=== PATIENT | male | born 1955 | race Hispanic/Latino ===

== ENCOUNTER → 2024-04-20 | Outpatient (CLI) | payer OTHER, MEDICARE ==
[~2024-04-20] MED LIST: IOHEXOL 350 MG/ML 100ML INFUS..BTL IV ONE; metoPROLOL tartRATE 1 MG/ML 5ML VIAL IV ONE
--- NOTE | 2024-04-20 14:14 | HMCIMG ---
CT CARDIAC ANGIO W/CONT. CCTA HISTORY: Abnormal result of cardiovascular function study. COMPARISON: None TECHNIQUE: Multiple sequential axial images of the chest were obtained along with the CT angiogram of the chest study. Patient was given 100 cc of Omnipaque through intravenous route. FINDINGS: There is no evidence of pulmonary nodule or parenchymal disease. No pleural effusion or pericardial effusion is seen. There is no evidence of pneumothorax. There are normal size mediastinal and hilar lymph nodes. The heart is not enlarged. Degenerative changes of the thoracolumbar spine are present. A small hiatal hernia is seen. IMPRESSION: 1. No evidence of pulmonary nodule or effusion is seen. Please see CT angiogram report of coronary arteries.
--- NOTE | 2024-04-22 07:20 | CARDIOLOGY ---
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 A dedicated, limited window, coronary imaging protocol was used, with single breath-hold, retrospective ECG gating, and automated arrhythmia rejection. 100 cc of low osmolar contrast agent: Omnipaque 350 was delivered via a 18-gauge IV catheter in the right antecubital fossa, using a power injector and followed by 60 cc of normal saline bolus as a chaser. Collimated images were reformatted at 0.5 mm intervals, and sent to an offline independent workstation for interpretation, using 3D anatomic reconstructions: Curved multiplanar reconstructions, maximum intensity projections, and multiplanar imaging. No metoprolol was administered prior to scanning due to low baseline heart rate. 0.4 mg SL nitroglycerin was given. CORONARY ARTERY DESCRIPTIONS: The coronary arteries arise in normal position. Left main coronary artery: Normal caliber vessel that trifurcates into the LAD, ramus and LCx. No stenosis. Left anterior descending coronary artery: Normal caliber vessel and gives rise to diagonal and septal branches. Heavily calcified ostial/proximal LAD may represent subtotal occlusion or [employer] with distal collateral filling. Ramus intermedius artery: Small to medium caliber. There is mixed calcified and noncalcified plaque in the proximal ramus with 40-50% stenosis. Left circumflex coronary artery: Normal caliber, nondominant and gives rise to a large OM branch. There is mixed calcified and noncalcified plaque in the proximal LCx with 40-50% stenosis. Right coronary artery: Large, dominant vessel giving rise to the PL and PDA branches. There is mixed calcified and noncalcified plaque in the proximal RCA with >70% stenosis. There is mixed calcified and noncalcified plaque in the distal RCA with 40-50% stenosis. CAD-RADs: 4B, severe multivessel obstructive CAD. Recommend left heart catheterization. Arcelia Lara MD Cardiovascular Disease [facility] ARCELIA LARA MD Apr 22, 2024 07:20
== END | disposition home or self-care (01) ==
LOC: RAH 11:43
PROVIDERS: ATTEND Student in an Organized Health Care Education/Training Program
DX: I25.10 Atherosclerotic heart disease of native coronary artery without angina pectoris (principal); K44.9 Diaphragmatic hernia without obstruction or gangrene; M47.815 Spondylosis without myelopathy or radiculopathy, thoracolumbar region; R94.39 Abnormal result of other cardiovascular function study
CPT/HCPCS: 75574; J3490 ×2; Q9967 ×2

== ENCOUNTER → 2024-05-29 | Outpatient (CLI) | payer OTHER, MEDICARE ==
[~2024-05-29] VITALS: Ht 165.1 cm; Wt 71.2 kg
[~2024-05-29] MED LIST changes: +ASPI-1443 PO; +ATOR40TA71 PO; +DAPA1TAB3 PO; +ICOS1CAP PO; +INSU200I4 SQ; -IOHEXOL 350 MG/ML 100ML INFUS..BTL IV ONE; +LEVO25TA54 PO; +LISI2.5T13 PO; -metoPROLOL tartRATE 1 MG/ML 5ML VIAL IV ONE
[2024-05-29 10:27] LABS: BASOPHILS # (AUTO) 0.03 K/uL (0.00-0.20); BASOPHILS % (AUTO) 0.4 % (0.0-5.0); EOSINOPHILS # (AUTO) 0.09 K/uL (0.00-0.70); EOSINOPHILS % (AUTO) 1.1 % (0.0-8.0); HEMATOCRIT 41.7 % (42-54); IMMATURE GRANULOCYTE ABSOLUTE 0.03 K/uL (0-1); LYMPHOCYTES % (AUTO) 25.5 % (21.0-51.0); MEAN CORPUSCULAR HEMOGLOBIN 30.2 pg (27.0-33.0); MEAN CORPUSCULAR HGB CONC 32.9 g/dL (32.0-36.0); MEAN CORPUSCULAR VOLUME 92.1 fL (79-99); MONOCYTES # (AUTO) 0.4 K/uL (0.1-1.0); NEUTROPHILS # (AUTO) 5.3 K/uL (1.8-7.7); NEUTROPHILS % (AUTO) 67.6 % (40.0-77.0); PLATELET COUNT (AUTO) 138 K/uL (130-400); RED BLOOD CELL COUNT(AUTO) 4.53 MIL/uL (4.50-6.20); RED CELL DISTRIBUTION WIDTH 13.7 % (11.0-15.5); WHITE BLOOD COUNT (AUTO) 7.9 K/uL (4.8-10.8)
[2024-05-29 10:33] VITALS: BP 161/73; PULSE 80; RESP 16; TEMP 97.6
[2024-05-29 10:36] LABS: CREATININE 1.4 mg/dL (0.5-1.3); POTASSIUM 5.3 mmol/L (3.5-5.1)
[2024-05-29 10:37] LABS: INR 1.04 (0.85-1.15); PROTHROMBIN TIME 11.2 SEC (9.6-11.6)
[2024-05-29 10:38] LABS: PARTIAL THROMBOPLASTIN TIME 27.9 SEC (26.3-35.5)
--- NOTE | 2024-05-29 10:50 | EKG ---
[facility] Test Date: 2024-05-29 Test Time: 11:12:47 Pat Name: GABY STEVENS Department: [facility] Room: Gender: M President [place]: [id number] : 1955 Requested By: BAILEY LARA Order Number: [id number] Reading MD: Arcelia Lara Measurements Intervals [place] Rate: 81 P: 48 [place]: 183 QRS: 23 QRSD: 80 T: 129 QT: 385 QTc: 448 Interpretive Statements Sinus rhythm Consider anteroseptal infarct Abnormal T, consider ischemia, lateral leads No previous ECG available for comparison Electronically Signed On 05-29-2024 13:33:58 [employer]OD COUNTER WORKER by Arcelia Lara Please click the below link to view image of tracing.
[2024-05-29 10:57] LABS: ADD UA MICROSCOPIC YES; APPEARANCE,URINE CLEAR (CLEAR); BILIRUBIN,URINE NEGATIVE (NEGATIVE); COLOR,URINE LIGHT-YELLOW (YELLOW); GLUCOSE, URINE (UA) >=1000 mg/dL (NEGATIVE); KETONES,URINE NEGATIVE (NEGATIVE); LEUKOCYTE ESTERASE ,URINE NEGATIVE Leu/uL (NEGATIVE); NITRATE,URINE NEGATIVE (NEGATIVE); OCCULT BLOOD,URINE NEGATIVE (NEGATIVE); PROTEIN,URINE 20 mg/dL (NEGATIVE); UROBILINOGEN,URINE 0.2 mg/dL (0.2-1.0)
[2024-05-29 11:07] LABS: B-TYPE NATRIURETIC PEPTIDE 63 pg/mL (0-100)
--- NOTE | 2024-05-29 11:23 | HMCIMG ---
CHEST 1VW REASON: PRE OP COMPARISON: None. FINDINGS: Single view of the chest was obtained. Lungs are clear. Heart size is normal. There is no pulmonary vascular congestion. Mediastinum and bony thorax appear unremarkable. IMPRESSION: 1. Normal single view chest x-ray.
[2024-05-29 11:33] LABS: RBC,URINE 0-1 /HPF (0-1); WBC,URINE 0-1 /HPF (0-1)
== END | disposition home or self-care (01) ==
LOC: DAH 10:00 → EDSTATUS 06-01 09:00
PROVIDERS: ATTEND Student in an Organized Health Care Education/Training Program
DX: Z01.818 Encounter for other preprocedural examination (principal); I25.10 Atherosclerotic heart disease of native coronary artery without angina pectoris; R94.39 Abnormal result of other cardiovascular function study; G45.9 Transient cerebral ischemic attack, unspecified
CPT/HCPCS: 36415; 71045; 80048; 81001; 83880; 85025; 85610; 85730; 93005

== ENCOUNTER → 2024-10-02 | Outpatient (CLI) | payer OTHER, MEDICARE ==
[~2024-10-02] VITALS: Ht 165.1 cm; Wt 86.7 kg
[2024-10-02 09:59] VITALS: BP 174/80; PULSE 59; RESP 13; TEMP 97.9
[2024-10-02 10:07] LABS: BASOPHILS # (AUTO) 0.05 K/uL (0.00-0.20); BASOPHILS % (AUTO) 0.7 % (0.0-5.0); EOSINOPHILS # (AUTO) 0.39 K/uL (0.00-0.70); EOSINOPHILS % (AUTO) 5.5 % (0.0-8.0); HEMATOCRIT 41.4 % (42-54); IMMATURE GRANULOCYTE ABSOLUTE 0.02 K/uL (0-1); LYMPHOCYTES # (AUTO) 2.2 K/uL (1.0-4.8); LYMPHOCYTES % (AUTO) 30.5 % (21.0-51.0); MEAN CORPUSCULAR HGB CONC 33.1 g/dL (32.0-36.0); MEAN CORPUSCULAR VOLUME 90.8 fL (79-99); MONOCYTES # (AUTO) 0.5 K/uL (0.1-1.0); MONOCYTES % (AUTO) 6.7 % (3.0-13.0); NEUTROPHILS % (AUTO) 56.3 % (40.0-77.0); PLATELET COUNT (AUTO) 150 K/uL (130-400); RED BLOOD CELL COUNT(AUTO) 4.56 MIL/uL (4.50-6.20); RED CELL DISTRIBUTION WIDTH 13.6 % (11.0-15.5); WHITE BLOOD COUNT (AUTO) 7.1 K/uL (4.8-10.8)
[2024-10-02 10:22] LABS: CREATININE 1.7 mg/dL (0.5-1.3)
[2024-10-02 10:27] LABS: APPEARANCE,URINE CLEAR (CLEAR); BILIRUBIN,URINE NEGATIVE (NEGATIVE); COLOR,URINE YELLOW (YELLOW); GLUCOSE, URINE (UA) >=1000 mg/dL (NEGATIVE); KETONES,URINE NEGATIVE (NEGATIVE); LEUKOCYTE ESTERASE ,URINE NEGATIVE Leu/uL (NEGATIVE); NITRATE,URINE NEGATIVE (NEGATIVE); OCCULT BLOOD,URINE NEGATIVE (NEGATIVE); PROTEIN,URINE 10 mg/dL (NEGATIVE); UROBILINOGEN,URINE 0.2 mg/dL (0.2-1.0)
[2024-10-02 10:28] LABS: POTASSIUM 6.3 mmol/L (3.5-5.1)
[2024-10-02 10:29] LABS: ADD UA MICROSCOPIC YES
[2024-10-02 10:30] LABS: INR 1.01 (0.85-1.15); PROTHROMBIN TIME 10.7 SEC (9.6-11.6)
[2024-10-02 10:31] LABS: PARTIAL THROMBOPLASTIN TIME 28.8 SEC (26.3-35.5)
[2024-10-02 10:35] LABS: B-TYPE NATRIURETIC PEPTIDE 89 pg/mL (0-100)
[2024-10-02 10:36] LABS: MUCUS,URINE RARE LPF (None Seen); RBC,URINE 0-1 /HPF (0-1)
--- NOTE | 2024-10-02 11:25 | HMCIMG ---
PORTABLE CHEST RADIOGRAPH INDICATION: PRE OP COMPARISON: 05/29/2024 FINDINGS: Heart size is normal. Mild calcific plaque is present along the aortic arch green. The pulmonary vascularity and marie appear normal. No abnormal pulmonary parenchymal opacity or consolidation identified. No significant pleural effusion noted. No pneumothorax detected. IMPRESSION: No radiographic evidence for any acute cardiopulmonary process.
--- NOTE | 2024-10-02 12:28 | NUR ---
NOTIFIED RECEIVED CALL FOR POTASSIUM OF 6.[address] BAILEY KEEN NOTIFIED AT 1030, BUT IS IN THE MIDDLE OF PROCEDURE. HE WILL CALL ME BACK 1050 RECEIVED ORDERS TO REPEAT POTASSIUM. 1127 REPEAT POTASSIUM LEVEL 6.3 PT AND SISTER INSTRUCTED ON THE IMPORTANCE OF GOING TO ER. SISTER STATED SHE WILL TAKE HIM BUT WILL BE GOING TO [facility]. [address] DR BAILEY KEEN NOTIFIED WITH CONFIRMATION OF POTASSIUM LEVEL. RECEIVED SAME INSTRUCTIONS FOR PT TO GO TO ER. Addendum: 10/02/24 at 1234 by VIVIANA FOSTER RN RN DR KEEN ALSO INFORMED OF KEYONA/JANELLE
--- NOTE | 2024-10-02 14:10 | NUR ---
cancel dr siri singh cancelled procedure. pt and sister notified
--- NOTE | 2024-10-02 16:35 | EKG ---
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
== END | disposition home or self-care (01) ==
LOC: EDSTATUS 09:00 → DAH 09:14
PROVIDERS: ATTEND Student in an Organized Health Care Education/Training Program
DX: Z01.818 Encounter for other preprocedural examination (principal); I25.10 Atherosclerotic heart disease of native coronary artery without angina pectoris; R94.39 Abnormal result of other cardiovascular function study; G45.9 Transient cerebral ischemic attack, unspecified
CPT/HCPCS: 36415; 71045; 80048; 81001; 83880; 84132; 85025; 85610; 85730; 93005